=== PATIENT | female | born 1980 | race Caucasian/White ===

== ENCOUNTER 2016-07-13 14:31 | Emergency (ER) | payer MEDICAID ==
[~2016-07-13] VITALS: Ht 175.3 cm; Wt 62.4 kg
[2016-07-13 14:35] VITALS: BP 138/80
[2016-07-13] MEDS ORDERED: FAMOTIDINE 20 MG TABLET ONE (15:21)
[2016-07-13] MEDS ORDERED: FAMOTIDINE 20 MG TABLET PO ONE (15:30)
== END 2016-07-13 15:32 | disposition home or self-care (01) ==
LOC: ED 15:15
DX: L23.89 Allergic contact dermatitis due to other agents (principal); T50.905A Adverse effect of unspecified drugs, medicaments and biological substances, initial encounter; Y92.89 Other specified places as the place of occurrence of the external cause; H10.023 Other mucopurulent conjunctivitis, bilateral; Z86.14 Personal history of Methicillin resistant Staphylococcus aureus infection
CPT/HCPCS: 99284; J7512; Q0177